=== PATIENT | female | born 1960 | race Caucasian/White ===

== ENCOUNTER 2016-05-01 19:45 | Emergency (ER) | payer OTHER ==
[2016-05-01 19:50] VITALS: O2SAT 98
[2016-05-01] MEDS ORDERED: IPRATROPIUM/ALBUTEROL 3 ML DEYVIAL IH ONE (20:24)
[2016-05-01] MEDS ORDERED: AZITHROMYCIN 250 MG TAB PO ONE (20:24)
--- NOTE | 2016-05-01 20:30 | EDPHY ---
H & P Stated Complaint: productive cough x2w, tx steroids, getting worse Time Seen by Provider: 05/01/16 20:09 HPI/ROS: Chief complaint: Cough HPI: Patient is presenting with cough for 2 weeks. It is dry nonproductive. She has a history of smoking. Was seen by her primary care doctor and started on prednisone, 40 mg a day for the last 5 days. She is having persistent cough which is dry but is keeping her up at night. No fevers or chills. No nausea or vomiting. Has pain with the cough but otherwise no pain. She has also been taking Tessalon Perles without any significant relief. ROS: 10 point Review of Systems is negative except as noted in the HPI. Past medical history: None Allergies: None Physical exam: Gen: Awake, Alert, No Distress HEENT: Nose: no rhinorrhea Eyes: PERRLA, EOMI Mouth: Moist mucosa Neck: Supple, no JVD Chest: nontender, diffuse expiratory wheeze with no focal rales or rhonchi Heart: S1, S2 normal, no murmur Abd: Soft, non-tender, no guarding Back: no CVA tenderness, no midline tenderness Ext: no edema, non-tender Skin: no rash Neuro: CN II-XII intact, Sensation grossly intact, Strength 5/5 in bilateral upper and lower extremities - Personal History LMP (Females 10-55): Post Menopausal Current Tetanus/Diphtheria Vaccine: No Current Tetanus Diphtheria and Acellular Pertussis (TDAP): No - Medical/Surgical History Hx Asthma: No Hx Chronic Respiratory Disease: No Hx Diabetes: No Hx Cardiac Disease: No Hx Renal Disease: No Hx Cirrhosis: No Hx Alcoholism: No Hx HIV/AIDS: No Hx Splenectomy or Spleen Trauma: No Other PMH: denies - Social History Smoking Status: Current some day smoker Constitutional: Initial Vital Signs Temperature (C) 36.8 C 05/01/16 19:47 Heart Rate 77 05/01/16 19:47 Respiratory Rate 16 05/01/16 19:47 Blood Pressure 97/61 L 05/01/16 19:47 O2 Sat (%) 98 05/01/16 19:47 O2 Delivery Mode Room Air Allergies/Adverse Reactions: No Known Allergies Allergy (Unverified 05/01/16 19:51) Home Medications: Medication Instructions Recorded AZITHROMYCIN [Z-PACK] 250 mg PO DAILY #6 tab 05/01/16 Lexapro 05/01/16 Prednisone 05/01/16 Medical Decision Making ED Course/Re-evaluation: 55-year-old with obvious bronchitis. She has no focal infiltrate on auscultation. She is a smoker so will start her on antibiotics. Will give her a DuoNeb here. Plans send her home with albuterol. Follow up with primary care doctor in a few days. - Data Points Laboratory Results: 05/01/16 20:00 Influenza Typ A,B (DFA) NEGATIVE FOR FLU (NEGATIVE) Departure - Departure Disposition: Home, Routine, Self-Care Clinical Impression: Bronchitis Condition: Good Instructions: Acute Bronchitis (ED) Additional Instructions: You may use your bilateral inhaler with a spacer, 2 puffs every 2 hours as needed for wheezing. Continue taking her Tessalon Perles as needed for cough. Follow up with primary care doctor in 3-4 days for re-evaluation. Referrals: Ayse Bahena MD [Primary Care Provider] - As per Instructions Prescriptions: AZITHROMYCIN [Z-PACK] 250 mg PO DAILY #6 tab
[2016-05-01] MEDS ORDERED: ALBUTEROL INH PREPACK MDI TAKEHOME ONE (21:08)
[2016-05-01 21:27] VITALS: BP 95/69; PULSE 79; RESP 20; TEMP 98.4
== END 2016-05-01 21:27 | disposition home or self-care (01) ==
DX: J20.9 Acute bronchitis, unspecified (principal); F17.200 Nicotine dependence, unspecified, uncomplicated

== ENCOUNTER 2016-06-08 16:19 | Observation (INO) | payer OTHER ==
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
[2016-06-08] MEDS ORDERED: TDAP ADULT 0.5 ML INJ (BOOSTRIX) IM ONE (16:26)
--- NOTE | 2016-06-08 16:38 | CPEKG ---
Heart Rate: 91 RR Interval: 659 P-R Interval: 148 QRSD Interval: 82 QT Interval: 372 QTC Interval: 458 P [place]: 73 QRS [place]: 19 T Wave [place]: 47 EKG Severity - NORMAL ECG - EKG Impression: SINUS RHYTHM Electronically Signed By: Mann Fairchild 08-Jun-2016 16:45:34
[2016-06-08 17:04] LABS: % IMMATURE GRANULYOCYTES 0.4 % (0.0-1.1); ABSOLUTE IMMATURE GRANULOCYTES 0.03 10^3/uL (0.00-0.10); ADD DIFF? NO; ADD MORPH? NO; ADD SCAN? NO; ATYPICAL LYMPHOCYTE FLAG 10 (0-99); FRAGMENT RBC FLAG 0 (0-99); HEMOGLOBIN 13.9 g/dL (12.6-16.3); LEFT SHIFT FLG 0 (0-99); LIPEMIA HEMOLYSIS FLAG 90 (0-99); MEAN CELL HEMOGLOBIN 31.7 pg (27.9-34.1); MEAN CELL HEMOGLOBIN CONCENTR. 34.8 g/dL (32.4-36.7); MEAN CELL VOLUME 91.3 fL (81.5-99.8); MEAN PLATELET VOLUME 10.1 fL (8.7-11.7); PLATELET CLUMPS FLAG 0 (0-99); PLATELET COUNT 309 10^3/uL (150-400); RED BLOOD CELL COUNT 4.38 10^6/uL (4.18-5.33); RED CELL DISTRIBUTION WIDTH 12.7 % (11.5-15.2)
[2016-06-08 17:07] LABS: ANION GAP 17 mEq/L (8-16); CALCIUM 9.6 mg/dL (8.5-10.4); CARBON DIOXIDE 18 mEq/l (22-31); CHLORIDE 110 mEq/L (97-110); CREATININE 0.7 mg/dL (0.6-1.0); GLOMERULAR FILTRATION RATE > 60; GLUCOSE 88 mg/dL (70-100); POTASSIUM 4.5 mEq/L (3.5-5.2); SODIUM 145 mEq/L (134-144)
[2016-06-08 17:20] LABS: ETHANOL SERUM 343 mg/dL (0-10)
[2016-06-08] MEDS ORDERED: NS 1,000 ML IV ONE ×2 (17:20)
[2016-06-08] MEDS ORDERED: BUPIVACAINE 0.5% 30 ML SDV ONE (17:34)
[2016-06-08] MEDS ORDERED: POLYMYXIN B SULFATE 500,000 UNIT/10 ML SYR IRR ONE (17:35)
[2016-06-08] MEDS ORDERED: BACITRACIN 50,000 UNITS/10 ML SYR IRR ONE (17:35)
[2016-06-08] MEDS ORDERED: ROCURONIUM 50 MG/5 ML VIAL ONE (17:55)
[2016-06-08] MEDS ORDERED: DEXAMETHASONE 4 MG/ML VIAL ONE (17:55)
[2016-06-08] MEDS ORDERED: SUCCINYLCHOLINE CHLORIDE*ANESTHESIA ONLY*200 MG/10 ML SYR IVP ONE (17:55)
[2016-06-08] MEDS ORDERED: LIDOCAINE 2% 5 ML SDV ONE (17:55)
[2016-06-08] MEDS ORDERED: PROPOFOL 200 MG/20 ML VIAL ONE (17:56)
[2016-06-08] MEDS ORDERED: fentaNYL 100 MCG/2 ML INJ ONE (17:56)
[2016-06-08] MEDS ORDERED: ceFAZolin 1 GM/5 ML SYR ONE (18:10)
[2016-06-08] MEDS ORDERED: MIDAZOLAM 2 MG/2 ML VIAL ONE (18:15)
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
[2016-06-08] MEDS ORDERED: ceFAZolin 1 GM VIAL ONE ×2 (18:33)
[2016-06-08] MEDS ORDERED: epHEDrine SULFATE 10 MG/ML SYR ONE (18:38)
[2016-06-08] MEDS ORDERED: ONDANSETRON 4 MG/2 ML VIAL ONE (18:52)
[2016-06-08] MEDS ORDERED: KETOROLAC 30 MG/1 ML SDV ONE (18:52)
[2016-06-08] MEDS ORDERED: SUGAMMADEX SODIUM 200 MG/2 ML VIAL IVP ONE (19:11)
[2016-06-08] MEDS ORDERED: PROMETHAZINE HCL 25 MG SUPPR PR PRN (19:50)
[2016-06-08] MEDS ORDERED: KETOROLAC 15 MG/1 ML SDV IVP PRN (19:50)
[2016-06-08] MEDS ORDERED: TEMAZEPAM 15 MG CAP PO PRN (19:50)
[2016-06-08] MEDS ORDERED: oxyCODONE IR 5 MG TAB PO PRN (19:50)
[2016-06-08] MEDS ORDERED: DIPHENOXYLATE/ATROPINE LOMOTIL 1 TAB PO PRN (19:50)
[2016-06-08] MEDS ORDERED: CYCLOBENZAPRINE 10 MG TAB PO PRN (19:50)
[2016-06-08] MEDS ORDERED: OXYCODONE/APAP 5/325 TAB PO PRN (19:50)
[2016-06-08] MEDS ORDERED: diphenhydrAMINE 25 MG CAP PO PRN (19:50)
--- NOTE | 2016-06-08 19:59 | POSTOPPROG ---
Post Op Note Date of Operation: 06/08/16 Surgeon: Michael Hoffmann Anesthesiologist: ekaterina Anesthesia: GET(General Endotracheal) Pre-op Diagnosis: open right bimalleolar ankle fx Post-op Diagnosis: same Procedure: 1. I&D ankle 2. ORIF bimalleolar ankle fx Inf/Abcess present in the surg proc area at time of surgery?: No EBL: 50-100 Complications: none
[2016-06-08] MEDS ORDERED: LR 1,000 ML IV SCH (20:00)
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
[2016-06-08] MEDS: FAMOTIDINE 20 MG TAB PO SCH (22:40)
[2016-06-09] MEDS: ACETAMINOPHEN 325 MG TAB PO SCH ×3 (01:14→11:25)
[2016-06-09] MEDS: ceFAZolin 2 GM/DEXTROSE 100 ML IV SCH ×2 (01:17→09:51)
[2016-06-09 03:44] VITALS: RESP 16
[2016-06-09 07:13] VITALS: BP 130/75; PULSE 86; TEMP 98.5; O2SAT 93
[2016-06-09] MEDS ORDERED: ASPIRIN EC 325 MG TAB PO SCH (09:00)
[2016-06-09] MEDS: FAMOTIDINE 20 MG TAB PO SCH (09:41)
--- NOTE | 2016-06-09 09:47 | SOAPPROG ---
[facility] Progress Note Assessment/Plan: Assessment: Plan: 06/09/16 09:46 POD#1 I&D, ORIF open bimalleolar ankle fx DC home today after last Abx and PT/OT NWB x 4 weeks ASA 325 mg QD x 30 days F/U [place] 5 days for cast Subjective: not much pain o/n Objective: splint in place small amount bloody drainage from medial side moving toes brisk cap refill Vital Signs Temp Pulse Resp BP Pulse Ox 36.9 C 86 16 130/75 H 93 06/09/16 07:12 06/09/16 07:12 06/09/16 07:12 06/09/16 07:12 06/09/16 07:12 06/08/16 06/09/16 06/10/16 05:59 05:59 05:59 Intake Total 7000 Output Total 1470 Balance 5530 ICD10 Worksheet Patient Problems: Problems Problem Status Onset Bimalleolar fracture of right ankle Acute
== END 2016-06-09 12:33 | disposition home or self-care (01) ==
LOC: EDUNIT# → INTOOBSV 17:16 → F3N 20:24
PROVIDERS: ADMIT Orthopaedic Surgery; ATTEND Orthopaedic Surgery
PROC: 0QSJ04Z Reposition Right Fibula with Internal Fixation Device, Open Approach (ICD-10-PCS; principal; 2016-06-08 18:20)
PROC: 0QSG04Z Reposition Right Tibia with Internal Fixation Device, Open Approach (ICD-10-PCS; principal; 2016-06-08 18:20)
DX: S82.841B Displaced bimalleolar fracture of right lower leg, initial encounter for open fracture type I or II (principal); F10.129 Alcohol abuse with intoxication, unspecified; V47.0XXA Car driver injured in collision with fixed or stationary object in nontraffic accident, initial encounter; F32.9 Major depressive disorder, single episode, unspecified; Z23 Encounter for immunization; Y90.8 Blood alcohol level of 240 mg/100 ml or more; Y92.009 Unspecified place in unspecified non-institutional (private) residence as the place of occurrence of the external cause
CPT/HCPCS: 27814; 72125; 73590; 73610; 93005; 97116; 97161; 97165; C1769; G0378; 96365; C1713; G0480; J0330; J0690; J1100; J1885; J2250; J2405; J2704; J3010

== ENCOUNTER → 2016-08-02 | Outpatient (CLI) | payer OTHER | LOC: BMCIMAGING 14:52 | PROVIDERS: ATTEND Internal Medicine | DX: Z13.820 Encounter for screening for osteoporosis (principal); M85.80 Other specified disorders of bone density and structure, unspecified site ==

== ENCOUNTER → 2016-09-09 | Outpatient (CLI) | payer OTHER | LOC: FLAB 13:39 | PROVIDERS: ATTEND Internal Medicine Critical Care Medicine | DX: R05 Cough (principal); R53.83 Other fatigue; Z87.891 Personal history of nicotine dependence ==